=== PATIENT | male | born 1995 | race African-American/Black ===

== ENCOUNTER 2025-01-11 18:03 | Emergency (ER) | payer MEDICAID ==
[~2025-01-11] VITALS: Ht 175.3 cm; Wt 79.0 kg
[2025-01-11 18:40] VITALS: O2SAT 99
[2025-01-11] MEDS: LOPERAMIDE HCL 2MG CAPSULE PO ONE (19:15)
[2025-01-11 20:12] LABS: HEMATOCRIT. 52.6 % (42.0-52.0); HEMOGLOBIN. 17.3 g/dL (14.0-18.0); MEAN PLATELET VOLUME 7.8 fl (7.4-10.4); PLATELET 249 x1000/uL (130-400); RED BLOOD CELL COUNT 5.95 mill/uL (4.7-6.1); RED CELL DISTRIBUTION WIDTH 15.4 % (11.6-14.6)
[2025-01-11 20:23] LABS: INR 1.1
[2025-01-11 20:25] VITALS: TEMP 36.6
[2025-01-11] MEDS: ONDANSETRON HCL 4MG/2ML INJ IV ONE (20:27)
[2025-01-11 20:28] LABS: CREATININE 1.2 mg/dL (0.6-1.3)
[2025-01-11] MEDS: FAMOTIDINE 20MG/2ML VIAL IV ONE (20:28)
[2025-01-11] MEDS: KETOROLAC 15MG/ML VIAL IV ONE (20:28)
[2025-01-11 20:29] LABS: UREA NITROGEN BLOOD 13 mg/dL (9-23)
[2025-01-11 20:30] LABS: ASPARTATE AMINOTRANSFERASE 21 IU/L (<34)
[2025-01-11 20:31] LABS: BILIRUBIN DIRECT 0.4 mg/dL (<=3.0); BILIRUBIN TOTAL 1.4 mg/dL (0.1-1.0); PROTEIN TOTAL 10.4 g/dL (6.0-8.3)
[2025-01-11 20:36] LABS: BAND% 3.0 % (1.0-6.0); LYMPHOCYTES % MANUAL 28.0 % (20.0-50.0); MONOCYTES % MANUAL 7.0 % (2.0-8.0); NEUTROPHILS % MANUAL 62.0 % (45.0-75.0); PLATELET ESTIMATE NORMAL
[2025-01-11] MEDS: SODIUM CHLORIDE 0.9% 1,000 ML IV ONE (20:38)
[2025-01-11 21:19] LABS: CLARITY URINE CLOUDY (CLEAR); COLOR URINE DARK YELLOW (YELLOW); PH URINE 6.0 (4.5-8.0); SPECIFIC GRAVITY URINE 1.030 (1.005-1.030)
[2025-01-11 21:20] LABS: GLUCOSE URINE NEGATIVE (NEGATIVE); KETONES URINE 4+ (NEGATIVE); LEUKOCYTE ESTERASE URINE NEGATIVE (NEGATIVE); NITRITE URINE NEGATIVE (NEGATIVE); OCCULT BLOOD URINE 2+ (NEGATIVE); PROTEIN URINE 2+ (NEGATIVE); UROBILINOGEN URINE 1.0 E.U./dL (0.2-1.0)
[2025-01-11 21:39] LABS: BACTERIA URINE 3+; SQUAMOUS EPITHELIAL CELL URINE FEW /lpf (RARE/1+)
[2025-01-11 21:40] LABS: WBC URINE 0-2 /hpf (0-2)
[2025-01-11] MEDS ORDERED: LOPE2CAP MT (22:21)
[2025-01-11] MEDS ORDERED: ONDA-239 PO (22:21)
[2025-01-11] MEDS ORDERED: FAMO-135 MT (22:21)
[2025-01-11] MEDS ORDERED: NITA500T2 MT (22:36)
[2025-01-11 23:00] VITALS: BP 149/90; PULSE 89; RESP 15; O2SAT 98
[2025-01-11] MEDS ORDERED: IOHEXOL-300 100 ML BOTTLE ONE (23:25)
[2025-01-14 07:08] LABS: HIV 1 ABS Reactive (Non Reactive); HIV 2 ABS Non Reactive (Non Reactive); HIV SCREEN 4G Preliminary Reactive (Non Reactive)
== END 2025-01-11 23:13 | disposition home or self-care (01) ==
LOC: ER 18:03 → CMPBEDREQ 01-12 19:33
DX: K52.9 Noninfective gastroenteritis and colitis, unspecified (principal); J45.909 Unspecified asthma, uncomplicated; Q63.1 Lobulated, fused and horseshoe kidney
CPT/HCPCS: 86701; 86702; 80076; 80048; 81003; 83690; 83735; 85025; 89055; 85610; 85730; 87045; 87427 ×2; 87015; 87493; 36415; 87449; 87389; 74177; 96361; 96374; 96375; 99285; Q9967; J1308; J1885; J2405; J7030; Z7610 ×2